=== PATIENT | female | born 1990 | race Caucasian/White ===

== ENCOUNTER 2019-08-21 16:39 | Emergency (ER) | payer OTHER ==
[2019-08-21 16:55] VITALS: BP 146/92
--- NOTE | 2019-08-21 18:01 | UC ---
Lower Extremity/Ankle HPI - HPI Summary HPI Summary: 29-year-old female presents with complaints of pain to her left little toe after she accidentally ran it over with a linen cart at work earlier today. States she has continued to walk on the foot since the injury. Complains of mild pain with walking. Denies any numbness or tingling. - History of Current Complaint Chief Complaint: UCLowerExtremity Stated Complaint: TOE INJURY Time Seen by Provider: 08/21/19 17:49 Hx Obtained From: Patient Hx Last Menstrual Period: [id number] Pain Intensity: 6 - Allergies/Home Medications Allergies/Adverse Reactions: Allergies Allergy/AdvReac Type Severity Reaction Status Date / Time No Known Allergies Allergy Verified 08/21/19 16:55 Home Medications: Home Medications NK [No Home Medications Reported] 08/21/19 [History Confirmed 08/21/19] PMH/Surg Hx/FS Hx/Imm Hx Previously Healthy: Yes - Denies significant PMH - Surgical History Surgical History: None - Family History Known Family History: Positive: Non-Contributory - Social History Occupation: Employed Full-time Lives: With Family Alcohol Use: Rare Substance Use Type: None Smoking Status (MU): Never Smoked Tobacco Review of Systems All Other Systems Reviewed And Are Negative: Yes Constitutional: Positive: Negative Skin: Positive: Bruising Respiratory: Positive: Negative Cardiovascular: Positive: Negative Gastrointestinal: Positive: Negative Genitourinary: Positive: Negative Motor: Negative: Weakness Neurovascular: Negative: Decreased Sensation Musculoskeletal: Positive: Other: - See HPI Neurological: Positive: Negative Is Patient Immunocompromised?: No Physical Exam - Summary Physical Exam Summary: GENERAL APPEARANCE: Well developed, well nourished, alert and cooperative, and appears to be in no acute distress. CARDIAC: Normal S1 and S2. No S3, S4 or murmurs. Rhythm is regular. There is no peripheral edema, cyanosis or pallor. Extremities are warm and well perfused. Capillary refill is less than 2 seconds. Peripheral pulses intact. LUNGS: Clear to auscultation without rales, rhonchi, wheezing or diminished breath sounds. ABDOMEN: Positive bowel sounds. Soft, nondistended, nontender. No guarding or rebound. No masses or hepatosplenomegally. MUSKULOSKELETAL: Normal muscular development. Normal gait. EXTREMITIES: Tenderness to the distal left little toe without gross deformity. Mild edema. Circulation and sensation intact. SKIN: Skin normal color, texture and turgor. Triage Information Reviewed: Yes Vital Signs: Initial Vital Signs Temp 99.0 F 08/21/19 16:51 Pulse 85 08/21/19 16:51 Resp 20 08/21/19 16:51 BP 146/92 08/21/19 16:51 Pulse Ox 98 08/21/19 16:51 Vital Signs Reviewed: Yes Diagnostics - Radiology No standard instances Radiology Interpretation Completed By: Radiologist Summary of Radiographic Findings: Order Information: FOOT LEFT 3+ VWS. INDICATION: Left foot injury. TECHNIQUE: 3 views of the left foot were obtained. FINDINGS: There is soft tissue swelling about the fifth toe. A transversely oriented nondisplaced fracture extends through the fifth distal phalanx. Anatomic alignment is maintained. The joint spaces are preserved. IMPRESSION: NONDISPLACED FRACTURE OF THE FIFTH DISTAL PHALANX. Lower Extremity Course/Dx - Course Course Of Treatment: 29-year-old female presents with complaints of pain to her left little toe after she accidentally ran it over with a linen cart at work earlier today. States she has continued to walk on the foot since the injury. Complains of mild pain with walking. Denies any numbness or tingling. He is afebrile. Hypertensive otherwise vital signs stable. Patient has some tenderness and mild edema to the distal little toe of the left foot without gross deformity. Circulation sensation were intact. X-ray showed a transversely oriented nondisplaced fracture extends through the fifth distal phalanx. Results were reviewed with the patient. Recommending conservative treatment for a nondisplaced toe fracture including [id number] analgesics and RICE. She was placed in a postop shoe by the RN. She is to follow-up with orthopedic surgery in 7 days especially if symptoms are not improving. Anticipatory guidance and warning symptoms were reviewed with the patient. Verbalizes understanding and agrees with plan of care. - Differential Dx/Diagnosis Provider Diagnosis: Closed fracture of distal phalanx of toe of left foot Discharge ED - Sign-Out/Discharge Documenting (check all that apply): Patient Departure All imaging exams completed and their final reports reviewed: Yes - Discharge Plan Condition: Stable Disposition: HOME Patient Education Materials: Toe Fracture (ED) Forms: *Work Release Referrals: No Primary Care Phys,NOPCP [Primary Care Provider] - Ann Mi MD [Medical Doctor] - 7 Days () Additional Instructions: The x-ray performed in the clinic today showed evidence of a nondisplaced fracture extends through the fifth distal phalanx. Rest the foot as much as possible. You may continue to walk and bear weight as tolerated. Use the post-op shoe that was provided for support and comfort. Apply ice to the affected area for 15-20 minutes at least 4 times a day to help with the pain and swelling. Elevate the foot to help reduce swelling. Take acetaminophen (Tylenol) or ibuprofen (Advil, Motrin) according to directions as needed for pain. Follow up with orthopedic surgery in 7 days especially if there is no improvement in symptoms. Seek immediate medical attention if you have severe pain not managed with pain medication, you are unable to walk or bear any weight, develop numbness or tingling in the foot or toe(s), or have any worsening of symptoms. - Billing Disposition and Condition Condition: STABLE Disposition: Home
== END 2019-08-21 18:10 | disposition home or self-care (01) ==
LOC: UCEAST 16:39
DX: S92.912A Unspecified fracture of left toe(s), initial encounter for closed fracture (principal); X58.XXXA Exposure to other specified factors, initial encounter; Y93.02 Activity, running; Y92.9 Unspecified place or not applicable; Y99.0 Civilian activity done for income or pay
CPT/HCPCS: 99211; G0463

== ENCOUNTER 2021-12-12 09:29 | Inpatient (IN) ==
[2021-12-12] MEDS ORDERED: Lactated Ringers 1000 ml BAG 1,000 ML IV ONE ×2 (10:12→11:10)
[2021-12-12] MEDS ORDERED: Buffered Lidocaine 1% SYRIN 1 ml INTRADERM ONE (10:12)
[2021-12-12] MEDS ORDERED: Labetalol IV 5 MG/ML 20 ml VIAL IV PUSH ONE ×3 (10:14→11:09)
[2021-12-12] MEDS ORDERED: Labetalol IV 5 MG/ML 20 ml VIAL ONE (10:17)
[2021-12-12 10:28] LABS: ABS Basophils 0.1 10^3/ul (0-0.2); ABS Lymphocytes 2.2 10^3/ul (1.0-4.8); ABS Monocytes 0.6 10^3/ul (0-0.8); ABS Neutrophils 4.9 10^3/ul (1.5-7.7); Eosinophil % 0.4 %; Hematocrit 36 % (35-47); Hemoglobin 11.5 g/dL (12.0-16.0); Lymphocyte % 28.3 %; Mean Corpuscular HGB Conc 32 g/dL (31-36); Mean Corpuscular Hemoglobin 25 pg (27-31); Mean Corpuscular Volume 76 fL (80-97); Mean Platelet Volume 9.7 fL (7.4-10.4); Platelet Count 255 10^3/uL (150-450); Red Blood Count 4.66 10^6 /uL (3.70-4.87); Red Cell Distribution Width 16 % (10-15); White Blood Count 7.9 10^3/uL (3.5-10.8)
[2021-12-12 10:50] LABS: Urine Benzodiazepine Screen None Detected (None Detect); Urine Cannabinoids Screen None Detected (None Detect); Urine Opiates Screen None Detected (None Detect)
[2021-12-12 10:58] LABS: Albumin 3.1 g/dL (3.2-5.2); Albumin/Globulin Ratio 1.2 (1-3); Calcium 8.6 mg/dL (8.6-10.3); Globulin 2.6 g/dL (2-4); Potassium 4.7 mmol/L (3.5-5.0); Total Bilirubin 0.3 mg/dL (0.2-1.0); Total Protein 5.7 g/dL (6.4-8.9)
[2021-12-12] MEDS ORDERED: Lactated Ringers 1000 ml BAG 1,000 ML IV SCH ×2 (11:00→14:00)
[2021-12-12] MEDS ORDERED: Magnesium Sulf 4 GM/100 ML IV 4,000 MG/100 ML BAG IVPB ONE (11:14)
[2021-12-12] MEDS ORDERED: Magnesium Sulfate OB PREMIX 4 GM/100 ML BAG IV ONE (11:16)
[2021-12-12] MEDS ORDERED: Calcium Gluconate 1 GM/10 ML VIAL (in Pyxis) IV PUSH PRN (11:17)
[2021-12-12] MEDS ORDERED: Magnesium Sulfate OB PREMIX 40 GM/1,000 ML BAG ONE (11:29)
[2021-12-12] MEDS ORDERED: Sodium Citrate/Citric Acid LIQ 15 ML UDC ONE (11:30)
[2021-12-12] MEDS ORDERED: ceFOXitin 2 GM IVPREMIX 2 GM/50 ML BAG ONE (11:30)
[2021-12-12] MEDS ORDERED: Phenylephrine 40 mcg/mL 10mL (400mcg) SYRINGE ONE (11:59)
[2021-12-12] MEDS ORDERED: Morphine PF AMP (0.5MG/ML) 5 MG/10 ML AMP ONE (11:59)
[2021-12-12] MEDS ORDERED: Oxytocin 10 UNITS/ML 1 ML VIAL ONE (11:59)
[2021-12-12] MEDS ORDERED: Scopolamine 1 mg/72hr PATCH ONE (11:59)
[2021-12-12] MEDS ORDERED: Magnesium Sulfate OB PREMIX 40 GM/1,000 ML BAG IVPB SCH (12:00)
[2021-12-12] MEDS ORDERED: fentaNYL 100 mcg/2 ml 50 MCG/ML VIAL IV PRN (12:15)
[2021-12-12] MEDS ORDERED: Ondansetron 4 mg VIAL 2 MG/ML 2 ml VIAL IV PRN ×2 (12:15→13:04)
[2021-12-12] MEDS ORDERED: Naloxone 0.4 mg VIAL 0.4 mg/ml 1 ml VIAL IV PRN ×2 (12:15→13:04)
[2021-12-12] MEDS ORDERED: oxyCODONE/Acetamin 5/325 mg TAB PO PRN ×2 (13:04)
[2021-12-12] MEDS ORDERED: Acetaminophen IV 1 GM/100ML 100 ML IV ONE (13:10)
[2021-12-12] MEDS ORDERED: Glycerin ADULT 2.4 gm SUPP PR PRN (13:55)
[2021-12-12] MEDS ORDERED: Dibucaine 1% OINT 28.35 GM TUBE PR PRN (13:55)
[2021-12-12] MEDS ORDERED: Witch Hazel PAD JAR TOPICAL PRN (13:55)
[2021-12-12] MEDS ORDERED: Oxytocin in LR 20 UNITS/1,000 ML BAG IVPB SCH (14:00)
[2021-12-12 15:43] LABS: Urine Appearance Clear; Urine Bilirubin Negative (Negative); Urine Blood Negative (Negative); Urine Color Straw; Urine Glucose Negative (Negative); Urine Ketones Negative (Negative); Urine Nitrite Negative (Negative); Urine Protein 2+(100 mg/dL) (Negative); Urine Specific Gravity 1.005 (1.002-1.030); Urine Urobilinogen Negative (Negative)
[2021-12-12 16:01] LABS: Urine Bacteria Absent (Absent); Urine Red Blood Cell Absent (Absent); Urine Squamous Epithelial Cell Present (Absent); Urine White Blood Cell Absent (Absent)
[2021-12-12 16:06] LABS: Urine Benzodiazepine Screen None Detected (None Detect); Urine Opiates Screen None Detected (None Detect)
[2021-12-13 08:49] LABS: ABS Lymphocytes 1.3 10^3/ul (1.0-4.8); ABS Monocytes 0.6 10^3/ul (0-0.8); ABS Neutrophils 7.7 10^3/ul (1.5-7.7); Eosinophil % 0.4 %; Hematocrit 32 % (35-47); Hemoglobin 10.2 g/dL (12.0-16.0); Lymphocyte % 13.6 %; Mean Corpuscular HGB Conc 32 g/dL (31-36); Mean Corpuscular Hemoglobin 25 pg (27-31); Mean Corpuscular Volume 77 fL (80-97); Mean Platelet Volume 9.3 fL (7.4-10.4); Platelet Count 216 10^3/uL (150-450); Red Cell Distribution Width 16 % (10-15); White Blood Count 9.7 10^3/uL (3.5-10.8)
[2021-12-17 10:13] VITALS: BP 147/79
== END 2021-12-17 13:15 | disposition home or self-care (01) | DRG 540 ==
LOC: MCHOBOUT 09:29 → MCHOB 10:10
PROVIDERS: ADMIT Obstetrics & Gynecology; ATTEND Obstetrics & Gynecology